=== PATIENT | male | born 1950 | race African-American/Black ===

== ENCOUNTER 2020-04-12 15:12 | Inpatient (IN) | payer MEDICARE, MEDICAID ==
[~2020-04-12] VITALS: Ht 170.2 cm; Wt 72.5 kg
[~2020-04-12 15:12] MED LIST: CATAPRES0.1 MG ORAL; METFORMIN HCL500 M1 ORAL
--- NOTE | 2020-04-12 15:30 | Emergency Room Report ---
History of Present Illness General Chief Complaint: Abnormal Labs Source: Patient, EMS Present Illness HPI Patient was started from assisted living for high blood sugar. The patient takes Metformin. He has a history of hypertension also. The patient is a poor historian as he has a history of schizophrenia. Apparently he denied any body pain to the ambulance crew. He does not answer many questions. It is undocumented how high the blood sugar was at the facility. History of hypertension, diabetes and schizophrenia. The patient allegedly had Covid in September. 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 Patient History Limited by: medical condition Past Medical History: see triage record Social History Narrative Assisted living Reviewed Nursing Documentation: PMH: Agreed; PSxH: Agreed Nursing Documentation-PMH Past Medical History: No History, Except For Hx Hypertension: Yes Hx Diabetes: Yes Review of Systems All Other Systems: limited Physical Exam Vital Signs Date Time Temp Pulse Resp B/P (MAP) Pulse Ox O2 Delivery O2 Flow Rate FiO2 04/12/20 15:14 97.9 78 18 120/58 (78) 96 Room Air Sp02 EP Interpretation: reviewed, normal General Appearance: well appearing, no apparent distress, alert, other - Not answering many questions Head: normocephalic, atraumatic Eyes: bilateral eye other - Not looking at examiner ENT: moist mucus membranes - Dentition Neck: supple Respiratory: lungs clear, normal breath sounds Cardiovascular #1: regular rate, rhythm Cardiovascular #2: 2+ radial (R) Gastrointestinal: normal inspection, normal bowel sounds, non tender, no mass, non-distended Genitourinary: no CVA tenderness Musculoskeletal: back normal, normal range of motion, gait/station normal Neurologic: alert, oriented - To name only, DTRs symmetric, sensory intact Psychiatric: mood/affect normal Skin: no rash, warm/dry Medical Decision Making Diagnostic Impression: Primary Impression: Hypernatremia Additional Impressions: Schizophrenia Qualified Codes: F20.89 - Other schizophrenia History of diabetes mellitus ER Course Patient presents with allegedly elevated blood glucose. Differential includes occult infection, acute myocardial infarction, medication noncompliance, electrolyte imbalance etc. so. Patient is difficult as he is not a good historian with history of schizophrenia. Evaluation with EKG, chest x-ray and labs. Patient treated with IV hydration and repeat blood glucose determinations. EKG without injury. Chest x-ray no infiltrates. Labs with minimally elevated white count without left shift. CMP remarkable for elevated sodium and normal glucose. Urinalysis with specific gravity 1.005. Urine sodium and urine osmolality ordered. Patient improved with IV hydration. Patient ambulatory and more conversant. Etiology of hypernatremia unclear. Patient extremely complicated with a history of schizophrenia. Patient admitted for observation and repeat sodium and glucose determinations. Laboratory Tests Test 04/12/20 15:30 04/12/20 16:01 White Blood Count 11.0 K/UL (4.8-10.8) H Red Blood Count 4.41 M/UL (4.70-6.10) L Hemoglobin 13.4 G/DL (14.2-18.0) L Hematocrit 40.9 % (42.0-52.0) L Mean Corpuscular Volume 93 FL (80-99) Mean Corpuscular Hemoglobin 30.5 PG (27.0-31.0) Mean Corpuscular Hemoglobin Concent 32.8 G/DL (32.0-36.0) Red Cell Distribution Width 13.1 % (11.6-14.8) Platelet Count 182 K/UL (150-450) Mean Platelet Volume 14.5 FL (6.5-10.1) H Neutrophils (%) (Auto) 64.5 % (45.0-75.0) Lymphocytes (%) (Auto) 22.8 % (20.0-45.0) Monocytes (%) (Auto) 8.5 % (1.0-10.0) Eosinophils (%) (Auto) 3.4 % (0.0-3.0) H Basophils (%) (Auto) 0.9 % (0.0-2.0) Sodium Level 151 MMOL/L (136-145) H Potassium Level 4.1 MMOL/L (3.5-5.1) Chloride Level 111 MMOL/L (98-107) H Carbon Dioxide Level 28 MMOL/L (21-32) Anion Gap 12 mmol/L (5-15) Blood Urea Nitrogen 14 mg/dL (7-18) Creatinine 0.8 MG/DL (0.55-1.30) Estimated Glomerular Filtration Rate > 60 mL/min (>60) Glucose Level 92 MG/DL (74-106) Lactic Acid Level 2.00 mmol/L (0.4-2.0) Calcium Level 8.6 MG/DL (8.5-10.1) Total Bilirubin 0.2 MG/DL (0.2-1.0) Aspartate Amino Transferase (AST) 15 U/L (15-37) Alanine Aminotransferase (ALT) 20 U/L (12-78) Alkaline Phosphatase 106 U/L (46-116) Total Creatine Kinase 65 U/L (26-308) Troponin I 0.000 ng/mL (0.000-0.056) Total Protein 7.2 G/DL (6.4-8.2) Albumin 3.1 G/DL (3.4-5.0) L Globulin 4.1 g/dL Albumin/Globulin Ratio 0.8 (1.0-2.7) L Thyroid Stimulating Hormone (TSH) 2.599 uiU/mL (0.358-3.740) Salicylates Level 1.3 ug/mL (2.8-20) L Serum Alcohol < 3 mg/dL Urine Color Pale yellow Urine Appearance Clear Urine pH 7 (4.5-8.0) Urine Specific [place] 1.005 (1.005-1.035) Urine Protein Negative (NEGATIVE) Urine Glucose (UA) Negative (NEGATIVE) Urine Ketones 1+ (NEGATIVE) H Urine Blood Negative (NEGATIVE) Urine Nitrite Negative (NEGATIVE) Urine Bilirubin Negative (NEGATIVE) Urine Urobilinogen Normal MG/DL (0.0-1.0) Urine Leukocyte Esterase Negative (NEGATIVE) Urine Osmolality 567 mOsm/kg (429-449) H Urine Random Sodium 125 mmol/L (20-110) H Urine Opiates Screen Negative (NEGATIVE) Urine Barbiturates Screen Negative (NEGATIVE) Phencyclidine (PCP) Screen Negative (NEGATIVE) Urine Amphetamines Screen Negative (NEGATIVE) Urine Benzodiazepines Screen Negative (NEGATIVE) Urine Cocaine Screen Negative (NEGATIVE) Urine Marijuana (THC) Screen Negative (NEGATIVE) Microbiology Date/Time Source Procedure Growth Status 04/12/20 21:00 Nasopharynx SARS-CoV-2 RdRp Gene Assay - Final Complete EKG Diagnostic Results Rate: normal Rhythm: NSR ST Segments: no acute changes Rhythm Strip Diag. Results EP Interpretation: yes Rhythm: NSR, no PVC's, no ectopy Chest X-Ray Diagnostic Results Chest X-Ray Diagnostic Results : Chest X-Ray Ordered: Yes # of Views/Limited/Complete: 1 View Indication: Other EP Interpretation: Yes Interpretation: no consolidation, no effusion, no pneumothorax Impression: No acute disease Electronically Signed by: Electronically signed by Edi Albert MD Last Vital Signs Date Time Temp Pulse Resp B/P (MAP) Pulse Ox O2 Delivery O2 Flow Rate FiO2 04/13/20 00:00 98.1 85 19 125/70 (88) 94 04/12/20 23:11 Room Air Status: improved Disposition: PLACE IN OBSERVATION Condition: Serious Edi Albert MD Apr 12, 2020 15:30
[2020-04-12 15:40] VITALS: BP 119/57
[2020-04-12 16:12] LABS: BASOPHILS % (AUTO) 0.9 % (0.0-2.0); EOSINOPHILS % (AUTO) 3.4 % (0.0-3.0); HEMATOCRIT 40.9 % (42.0-52.0); HEMOGLOBIN 13.4 G/DL (14.2-18.0); LYMPHOCYTES % (AUTO) 22.8 % (20.0-45.0); MEAN CORPUSCULAR VOLUME 93 FL (80-99); MONOCYTES % (AUTO) 8.5 % (1.0-10.0); NEUTROPHILS % (AUTO) 64.5 % (45.0-75.0); PLATELET COUNT 182 K/UL (150-450); RED BLOOD COUNT 4.41 M/UL (4.70-6.10); RED CELL DISTRIBUTION WIDTH 13.1 % (11.6-14.8)
[2020-04-12 16:25] LABS: ANION GAP 12 mmol/L (5-15); BLOOD UREA NITROGEN 14 mg/dL (7-18); CALCIUM 8.6 MG/DL (8.5-10.1); CARBON DIOXIDE 28 MMOL/L (21-32); CHLORIDE 111 MMOL/L (98-107); CREATININE 0.8 MG/DL (0.55-1.30); POTASSIUM 4.1 MMOL/L (3.5-5.1); SODIUM 151 MMOL/L (136-145)
[2020-04-12 16:37] LABS: ALANINE AMINOTRANSFERASE 20 U/L (12-78); ALBUMIN 3.1 G/DL (3.4-5.0); ALBUMIN/GLOBULIN RATIO 0.8 (1.0-2.7); ALKALINE PHOSPHATASE 106 U/L (46-116); ASPARTATE AMINO TRANSFERASE 15 U/L (15-37); BILIRUBIN,TOTAL 0.2 MG/DL (0.2-1.0); CREATINE KINASE 65 U/L (26-308)
--- NOTE | 2020-04-12 16:44 | Diagnostic Imaging Report ---
Indication: Shortness of breath Technique: One view of the chest Comparison: 03/03/2016 Findings: Lungs and pleural spaces are clear. Heart size is normal. No significant change Impression: No acute process
[2020-04-12 16:52] LABS: APPEARANCE,URINE CLEAR; BILIRUBIN, URINE NEGATIVE (NEGATIVE); COLOR,URINE PALE YELLOW; GLUCOSE, URINE (UA) NEGATIVE (NEGATIVE); KETONES,URINE 1+ (NEGATIVE); LEUKOCYTE ESTERASE ,URINE NEGATIVE (NEGATIVE); NITRITE,URINE NEGATIVE (NEGATIVE); PH,URINE 7 (4.5-8.0); PROTEIN,URINE NEGATIVE (NEGATIVE); UROBILINOGEN,URINE NORMAL MG/DL (0.0-1.0)
[2020-04-12 17:33] VITALS: BP 121/56
[2020-04-12] MEDS ORDERED: mylanta PO (22:33)
[2020-04-12] MEDS ORDERED: NATEGLINIDE120 MG PO (22:33)
[2020-04-12] MEDS ORDERED: CLOZAPINE200 MG PO (22:33)
[2020-04-12] MEDS ORDERED: MOM30 ML ORAL (22:33)
[2020-04-12] MEDS ORDERED: AMLODIPINE BESYL5 MG ORAL (22:33)
[2020-04-12] MEDS ORDERED: TRADJENTA5 MG PO (22:33)
[2020-04-12] MEDS ORDERED: BISACODYL10 M1 RC (22:33)
[2020-04-12] MEDS ORDERED: METFORMIN500 MG/5 M PO (22:33)
[2020-04-12] MEDS ORDERED: ACTOS15 MG ORAL (22:33)
[2020-04-12] MEDS ORDERED: LEVEMIR FL100 UNIT/2 SQ (22:33)
[2020-04-12] MEDS ORDERED: DEPAKOTE250 MG PO (22:33)
[2020-04-12] MEDS ORDERED: ACETAMINOPHEN325 M1 ORAL ×2 (22:33)
[2020-04-12] MEDS ORDERED: VITAMIN C500 M1 ORAL (22:33)
[2020-04-12] MEDS ORDERED: THIAMINE H100 MG/1 M IJ (22:33)
[2020-04-12] MEDS ORDERED: ASPIRIN81 MG ORAL (22:33)
[2020-04-12] MEDS ORDERED: METFORMIN HCL850 M1 ORAL (22:38)
[2020-04-12] MEDS: D5NS 1,000 ML IV SCH ×3 (22:45→23:48)
[2020-04-13] VITALS (7 sets, daily range): BP systolic 114–132; BP diastolic 68–81
[2020-04-13] MEDS: D5NS 1,000 ML IV SCH ×2 (01:26→18:29)
[2020-04-13] MEDS: NovoLOG Insulin Flexpen SUBQ SCH ×4 (06:02→20:22)
[2020-04-13] MEDS ORDERED: NovoLOG Insulin Flexpen SUBQ SCH (06:30)
[2020-04-13 07:55] LABS: BASOPHILS % (AUTO) 2.6 % (0.0-2.0); EOSINOPHILS % (AUTO) 3.3 % (0.0-3.0); HEMATOCRIT 39.3 % (42.0-52.0); HEMOGLOBIN 13.6 G/DL (14.2-18.0); MEAN CORPUSCULAR VOLUME 87 FL (80-99); MONOCYTES % (AUTO) 7.9 % (1.0-10.0); NEUTROPHILS % (AUTO) 65.2 % (45.0-75.0); PLATELET COUNT 188 K/UL (150-450); RED BLOOD COUNT 4.54 M/UL (4.70-6.10); RED CELL DISTRIBUTION WIDTH 12.4 % (11.6-14.8)
[2020-04-13 08:07] LABS: ANION GAP 10 mmol/L (5-15); BLOOD UREA NITROGEN 9 mg/dL (7-18); CALCIUM 8.6 MG/DL (8.5-10.1); CARBON DIOXIDE 25 MMOL/L (21-32); CHLORIDE 104 MMOL/L (98-107); CREATININE 0.8 MG/DL (0.55-1.30); SODIUM 139 MMOL/L (136-145)
[2020-04-13] MEDS: Aspirin Baby 81mg ORAL SCH (08:56)
[2020-04-13] MEDS: Docusate 100mg cap ORAL SCH ×2 (08:57→18:26)
[2020-04-13] MEDS: Ascorbic Acid 500mg tab ORAL SCH (08:59)
[2020-04-13] MEDS: Thiamine 100mg tab ORAL SCH (08:59)
[2020-04-13] MEDS ORDERED: Heparin 1000 units/ml 1ml Vial INJ SCH (09:00)
--- NOTE | 2020-04-13 12:00 | History and Physical Report ---
DATE OF ADMISSION: 04/12/2020 DATE AND TIME SEEN: 04/13/2020 at 9 a.m. CONSULTANTS: 1. Toan Carey MD. 2. Izaiah Castro MD. 3. Matilde Rodriguez MD. CHIEF COMPLAINT: Hypernatremia and hyperglycemia. BRIEF HISTORY: This is a 69-year-old male from [facility], presented with above-mentioned diagnoses, admitted to medical floor. Currently, slightly confused in bed. No complaint otherwise. REVIEW OF SYSTEMS: No chest pain. No shortness of breath. Slight nausea. No vomiting. No diarrhea. PAST MEDICAL HISTORY: Includes diabetes, COPD, hypertension, weakness, anemia, paranoid schizophrenia. PAST SURGICAL HISTORY: Unknown. ALLERGIES: Denies. MEDICATIONS: Include clozapine, magnesium, insulin, divalproex, heparin, , metformin, aspirin. SOCIAL HISTORY: Positive smoking. No alcohol. No intravenous drug abuse. FAMILY HISTORY: Noncontributory. PHYSICAL EXAMINATION: GENERAL: Slightly anxious in bed, oriented x1, in no acute distress. VITAL SIGNS: Temperature 97, pulse , respirations 18, blood pressure 125/75. CARDIOVASCULAR: No murmur. LUNGS: Distant and clear. ABDOMEN: Bowel sounds positive. Nontender. Nondistended. EXTREMITIES: No clubbing, cyanosis or edema. NEUROLOGIC: The patient moves all extremities, slightly weak. LABORATORY AND DIAGNOSTIC DATA: Labs at this time show hemoglobin and hematocrit 13/39, otherwise CBC is normal. BMP shows initial sodium of 151, now is normalized. Glucose 157. Lactic acid 6.7. Albumin 3.1. Urinalysis, 1+ ketone. Urine tox is negative. ASSESSMENT: 1. Hypernatremia, which is improved. 2. Hyperglycemia, improved. 3. Hypertension. 4. Diabetes. 5. COPD. 6. Weakness. 7. Anemia. 8. Paranoid schizophrenia. PLAN: IV fluid. Blood pressure, blood sugar, pain control. Resume home medications. Psych treatment. Dietary followup. PT and dietary evaluation. CBC and BMP in the morning. Psychiatric evaluation. Possible transfer. James Lakhani D.O. DR: DEMETRICE JOB#: [id number] CC:
--- NOTE | 2020-04-13 12:32 | Consultation ---
Consult Note Consult Note I am asked to evaluate the patient at the request of Dr. Lakhani for fluid and electrolyte management Patient was started from assisted living for high blood sugar. The patient takes Metformin. He has a history of hypertension also. The patient is a poor historian as he has a history of schizophrenia. Apparently he denied any body pain to the ambulance crew. He does not answer many questions. It is undocumented how high the blood sugar was at the facility. History of hypertension, diabetes and schizophrenia. The patient allegedly had Covid in September. 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 VITAL SIGNS: Temperature 97, pulse 78 , respirations 18, blood pressure 125/75. CARDIOVASCULAR: No murmur. LUNGS: Distant and clear. ABDOMEN: Bowel sounds positive. Nontender. Nondistended. EXTREMITIES: No clubbing, cyanosis or edema. NEUROLOGIC: The patient moves all extremities, slightly weak. LABORATORY AND DIAGNOSTIC DATA: Labs at this time show hemoglobin and hematocrit 13/39, otherwise CBC is normal. BMP shows initial sodium of 151, now is normalized. Glucose 157. Lactic acid 6.7. Albumin 3.1. Urinalysis, 1+ ketone. Urine tox is negative. . Assessment/Plan Hypernatremia now improved Hyperglycemia stable History of hypertension History of diabetes mellitus COPD Paranoid schizophrenia Mild anemia Continue per current management Continue to monitor electrolytes and renal parameters Psych Toan Oliver MD Apr 13, 2020 12:32
--- NOTE | 2020-04-13 15:45 | Consultation ---
DATE OF CONSULTATION: 04/13/2020 ENDOCRINOLOGY CONSULTATION CONSULTING PHYSICIAN: Izaiah Castro MD. REFERRING PHYSICIAN: James Lakhani DO. REASON FOR CONSULTATION: Management of diabetes. HISTORY OF PRESENT ILLNESS: The patient is a 69-year-old male, who is known to me. I followed him as an outpatient for the management of diabetes. He resides in [facility]. Diabetes regimen as an outpatient is Levemir 30 units at bedtime, Actos 15 mg daily, metformin 850 mg b.i.d., Starlix 120 mg before each meal, Tradjenta 5 mg daily as well as NovoLog sliding scale. He presented to the hospital with hypernatremia and hyperglycemia. Endocrinology was consulted. His hemoglobin A1c is 6.7 and a creatinine of 0.8. PAST MEDICAL HISTORY: 1. Heartburn. 2. Diabetes. 3. Dyslipidemia. 4. Psychiatric illness. PAST SURGICAL HISTORY: None. ALLERGIES TO MEDICATIONS: None. FAMILY HISTORY: Noncontributory. SOCIAL HISTORY: Lives in a jail facility. No smoking, alcohol, or drug use. REVIEW OF SYSTEMS: A 12-point review of systems was performed, pertinent positives and negatives mentioned in the present illness. LABORATORY DATA: Sodium 151, potassium 4.1, chloride 111, bicarb 28, BUN 14, creatinine 0.8, glucose of 92. TSH 2.5. PHYSICAL EXAMINATION: GENERAL: He is awake. VITAL SIGNS: Blood pressure 132/76, heart rate 79, temperature 98.2, respiratory rate of 18. HEENT: Pupils are reactive to light. Sclerae are anicteric. NECK: No JVD. HEART: Regular. LUNGS: Clear. ABDOMEN: Positive bowel sounds. Soft. EXTREMITIES: No clubbing, cyanosis, or edema. DIAGNOSES: 1. Diabetes, out of control. 2. Hypernatremia. PLAN: 1. Increase metformin to 850 mg b.i.d. 2. Continue Levemir 30 units at bedtime. 3. Starlix 120 mg before each meal. 4. Continue pioglitazone 15 mg daily. 5. NovoLog sliding scale before meals and at bedtime. 6. Further adjustment according to the blood glucose values. Thank you Dr. Lakhani, for the courtesy of this consultation. Izaiah Castro M.D. DR: ALEKSANDR JOB#: [id number] CC: TANNER
--- NOTE | 2020-04-13 19:59 | Cardiology Report ---
APPROVED REPORT EKG Measurement Heart [id number] <Conclusion> Normal sinus rhythm Normal ECG
[2020-04-13] MEDS: Levemir Flexpen SUBQ SCH (20:22)
[2020-04-13] MEDS: Milk of Magnesia 30ml Ud ORAL SCH (20:23)
[2020-04-13] MEDS: Heparin 5000 units/ml inj SUBQ SCH (20:23)
[2020-04-13] MEDS ORDERED: Levemir Flexpen SUBQ SCH (21:00)
--- NOTE | 2020-04-13 21:30 | Consultation ---
DATE OF CONSULTATION: 04/13/2020 INITIAL PSYCHIATRIC CONSULTATION REFERRING PHYSICIAN: James Lakhani D.O. HISTORY OF PRESENT ILLNESS: The patient got a consultation because he has a diagnosis of schizoaffective, bipolar type. He has been having some behavioral problems and irritability, agitation, mood lability. That is why, his attending has requested daily psychiatric consultation. I saw this patient at bedside. He states having auditory hallucinations and paranoid thoughts. He cannot contract for safety at this point. That is why, he does require acute psychiatric inpatient treatment, and so there was an assessment made for that today. He says "I feel very depressed and I am hearing voices. I need my medication adjusted on the psych unit." That was his chief complaint. MEDICAL HISTORY: This patient has a medical history significant for hypernatremia, diabetes. ALLERGIES: No known drug allergies. PSYCHOTROPIC MEDICATIONS ON ADMISSION: Depakote 250 mg daily, Clozaril 400 mg at bedtime. FAMILY PSYCHIATRIC HISTORY: Denies. PAIN ASSESSMENT: 09/04 pain. DEVELOPMENTAL PROBLEMS: Denies. SUBSTANCE ABUSE HISTORY: Denies. SOCIAL HISTORY: The patient lives in [facility]. Financially supported by [employer] and Medicare. STRENGTHS: He is motivated to get better and he is healthy. WEAKNESSES: Impulsive, minimal support system. MENTAL STATUS EXAMINATION: A 69-year-old male. His appearance is disheveled. Attitude irritable and agitated. Affect labile. Intellect poor because he does know current events, does not know last four presidents. Mood depressed and anxious. Motor activity, psychomotor agitation. Attention span is poor because he cannot do serial sevens or spell world backwards. Orientation x2, oriented to person, place, not time or situation. Speech is pressured, nonsensical. Thought process disorganized and illogical. Thought content, auditory hallucinations, paranoid delusions. Perception is poor because of perceptual disturbance such as auditory hallucinations and paranoid delusions. Abstract reasoning is poor because he does not understand proverbs and only has concrete thinking. Insight is poor because he does not recognize having a psych disorder. Judgment is poor. He does not accept consequences for his actions. Short-term memory, 3 out of 3 recall after 5 minutes delay with good short-term memory. Long-term memory is intact based on his knowledge of long-term events of his life such as high school that he went to. DIAGNOSES: 1. Schizoaffective, bipolar type. 2. There is no secondary. 3. Medical is COPD, hypertension, generalized weakness, diabetes. 4. Psychosocial stressors, financial. 5. Functional impairment severe. PLAN: Transfer to [facility] Psych Unit under the care of Dr. James Lakhani, the internal medicine physician, and Dr. Matilde Rodriguez, the psychiatrist, and provide him with 20 minutes of cognitive behavioral therapy to help him identify his automatic negative thoughts, help him convert his negative thoughts to more positive thoughts to reduce depression, anxiety, and mood lability. Chart reviewed. Discussed with staff. The patient was seen and assessed at bedside. Matilde Rodriguez M.D. DR: MICHAELLE/Obi JOB#: [id number] CC:
[2020-04-14 03:49] VITALS: BP 117/61
[2020-04-14] MEDS: NovoLOG Insulin Flexpen SUBQ SCH ×4 (06:29→20:31)
[2020-04-14 08:00] VITALS: BP 118/71
[2020-04-14] MEDS: Thiamine 100mg tab ORAL SCH (08:32)
[2020-04-14] MEDS: Ascorbic Acid 500mg tab ORAL SCH (08:32)
[2020-04-14] MEDS: Aspirin Baby 81mg ORAL SCH (08:32)
[2020-04-14] MEDS: Docusate 100mg cap ORAL SCH ×2 (08:32→16:58)
[2020-04-14] MEDS: D5NS 1,000 ML IV SCH (08:32)
[2020-04-14] MEDS: Heparin 5000 units/ml inj SUBQ SCH ×2 (08:36→20:36)
--- NOTE | 2020-04-14 08:53 | Initial Psychiatric Evaluation ---
Psychiatry Consultation Psychiatry Consultation Chief Complaint: Abnormal Labs History of Present Illness: 69 yo male who is confused ans disorganized. His cognition has declined bloe his baseling and he has auditory hallucinations and confusions with no plan for self care. Needs admit to psych Allergies: Coded Allergies: No Known Allergies (Unverified , 03/03/16) Medication History Scheduled Amlodipine Besylate* (Amlodipine Besylate*), 5 MG ORAL DAILY, (Reported) Ascorbic Acid* (Vitamin C*), 500 MG ORAL DAILY, (Reported) Aspirin* (Aspirin*), 81 MG ORAL DAILY, (Reported) Clonidine Hcl* (Catapres*), 0.1 MG ORAL Q8H, (Reported) Clozapine (Clozapine), 400 MG PO BEDTIME, (Reported) Divalproex Sodium* (Depakote*), 250 MG PO BEDTIME, (Reported) Insulin Detemir (Levemir Flextouch), 30 UNIT SQ QHS, (Reported) Magnesium Hydroxide (Milk of Magnesia), 30 ML ORAL QHS, (Reported) Metformin Hcl* (Metformin Hcl*), 850 MG ORAL DAILY, (Reported) Nateglinide (Nateglinide), 120 MG PO THREE TIMES A DAY, (Reported) Thiamine Hcl (Thiamine Hcl), 100 MG IJ DAILY, (Reported) [mylanta], 5 ML PO Q4HR, (Reported) Scheduled PRN Acetaminophen* (Acetaminophen 325MG Tablet*), 650 MG ORAL Q4H PRN for Temp >100.5, (Reported) Acetaminophen* (Acetaminophen 325MG Tablet*), 650 MG ORAL Q6H PRN for For Pain, (Reported) Linagliptin (Tradjenta), 5 MG PO DAILY PRN for Hyperglycemia, (Reported) Pioglitazone Hcl* (Actos*), 15 MG ORAL DAILY PRN for Hyperglycemia, (Reported) Miscellaneous Medications Bisacodyl (Bisacodyl), 10 MG RC, (Reported) Objective Data Height (Feet): 5 Height (Inches): 7.00 Weight (Pounds): 158 Appearance: disheveled Behavior Mannerisms: poor eye contact Affect: constricted Mood: irritable Speech: dysarthric Thought Process: disorganized Perceptual Disturbances: auditory Suicidal Ideation: no plan Assessment/Plan Assessment/Plan: 20 min of CBT therapy to help her identify her automatic thoughts of negative things and help convet them to positive thinking to reduce depression and SI. Continue Clozaril 400mg PO qhs and Depakote 500mg PO BID. Diagnosis [place] I: Schizoaffective Bipolar type Matilde Rodriguez MD Apr 14, 2020 08:53
[2020-04-14 10:28] LABS: HEMATOCRIT 39.3 % (42.0-52.0); HEMOGLOBIN 13.5 G/DL (14.2-18.0); LYMPHOCYTES % (AUTO) 23.7 % (20.0-45.0); MEAN CORPUSCULAR VOLUME 87 FL (80-99); MONOCYTES % (AUTO) 9.1 % (1.0-10.0); NEUTROPHILS % (AUTO) 63.2 % (45.0-75.0); PLATELET COUNT 180 K/UL (150-450); RED BLOOD COUNT 4.53 M/UL (4.70-6.10); RED CELL DISTRIBUTION WIDTH 12.7 % (11.6-14.8); WHITE BLOOD COUNT 8.3 K/UL (4.8-10.8)
--- NOTE | 2020-04-14 10:46 | General Progress Note ---
Subjective Constitutional: Reports: weakness Allergies: Coded Allergies: No Known Allergies (Unverified , 03/03/16) All Systems: reviewed and negative except above Subjective calm in bed Objective Last 24 Hour Vital Signs Date Time Temp Pulse Resp B/P (MAP) Pulse Ox O2 Delivery O2 Flow Rate FiO2 04/14/20 09:00 Room Air 04/14/20 08:33 81 118/71 04/14/20 08:00 98.6 81 18 118/71 (87) 97 04/14/20 03:49 96.4 79 18 117/61 (79) 99 04/13/20 23:45 97.7 82 20 114/68 (83) 93 04/13/20 21:00 Room Air 04/13/20 20:00 98.2 88 20 120/73 (89) 96 04/13/20 16:00 98.4 74 19 125/75 (92) 97 04/13/20 12:00 98.2 79 18 132/76 (94) 97 Intake and Output 04/13/20 04/14/20 19:00 07:00 Intake Total 1800 ml 1080 ml Output Total 4275 ml Balance -2475 ml 1080 ml Intake Oral 1800 ml IV Total 720 ml Other 360 ml Output Urine Total 4275 ml # Voids 7 # Bowel Movements 1 Laboratory Tests 04/14/20 10:11: Sodium Level [Pending], Potassium Level [Pending], Chloride Level [Pending], Carbon Dioxide Level [Pending], Blood Urea Nitrogen [Pending], Creatinine [Pending], Estimat Glomerular Filtration Rate [Pending], Glucose Level [Pen ding], Calcium Level [Pending] 04/14/20 10:15: White Blood Count 8.3, Red Blood Count 4.53L, Hemoglobin 13.5L, Hematocrit 39.3L , Mean Corpuscular Volume 87, Mean Corpuscular Hemoglobin 29.8, Mean Corpuscular Hemoglobin Concent 34.3, Red Cell Distribution Width 12.7, Platelet Count 180, Mean Platelet Volume 10.8H, Neutrophils (%) (Auto) 63.2, Lymphocytes (%) (Auto) 23.7, Monocytes (%) (Auto) 9.1, Eosinophils (%) (Auto) 3.0, Basophils (%) (Auto) 1.0 Height (Feet): 5 Height (Inches): 7.00 Weight (Pounds): 158 General Appearance: lethargic, confused EENT: normal ENT inspection Neck: normal alignment Cardiovascular: normal peripheral pulses, normal rate, regular rhythm Respiratory/Chest: chest wall non-tender, lungs clear, normal breath sounds Abdomen: normal bowel sounds, non tender, soft Extremities: normal inspection Edema: no edema noted Arm (L), no edema noted Arm (R), no edema noted Leg (L), no edema noted Leg (R), no edema noted Pedal (L), no edema noted Pedal (R), no edema noted Generalized Neurologic: motor weakness Skin: normal pigmentation, warm/dry Assessment/Plan Problem List: (1) Vomiting ICD Codes: R11.10 - Vomiting, unspecified SNOMED: 194688585 (2) Schizophrenia ICD Codes: F20.9 - Schizophrenia, unspecified SNOMED: [id number] Qualifiers: Qualified Codes: F20.89 - Other schizophrenia (3) History of diabetes mellitus ICD Codes: Z86.39 - Personal history of other endocrine, nutritional and metabolic disease SNOMED: 817304444 (4) Hypernatremia ICD Codes: E87.0 - Hyperosmolality and hypernatremia SNOMED: 524619350 Status: unchanged Assessment/Plan: bp bs control neph endo f/u cbc bmp am psyc transfer James Lakhani DO Apr 14, 2020 10:46
[2020-04-14 10:58] LABS: ANION GAP 5 mmol/L (5-15); BLOOD UREA NITROGEN 6 mg/dL (7-18); CALCIUM 8.4 MG/DL (8.5-10.1); CARBON DIOXIDE 29 MMOL/L (21-32); CHLORIDE 107 MMOL/L (98-107); CREATININE 0.7 MG/DL (0.55-1.30); POTASSIUM 3.8 MMOL/L (3.5-5.1); SODIUM 141 MMOL/L (136-145)
[2020-04-14 12:00] VITALS: BP 128/73
--- NOTE | 2020-04-14 12:28 | General Progress Note ---
Subjective Allergies: Coded Allergies: No Known Allergies (Unverified , 03/03/16) All Systems: reviewed and negative except above Subjective events noted interval notes reviewed glucose values improved Item Value Date Time Bedside Blood Glucose 160 mg/dl H 04/14/20 1217 Bedside Blood Glucose 162 mg/dl H 04/14/20 0629 Bedside Blood Glucose 226 mg/dl H 04/13/20 2030 Bedside Blood Glucose 124 mg/dl H 04/13/20 1645 Bedside Blood Glucose 206 mg/dl H 04/13/20 1202 Objective Last 24 Hour Vital Signs Date Time Temp Pulse Resp B/P (MAP) Pulse Ox O2 Delivery O2 Flow Rate FiO2 04/14/20 09:00 Room Air 04/14/20 08:33 81 118/71 04/14/20 08:00 98.6 81 18 118/71 (87) 97 04/14/20 03:49 96.4 79 18 117/61 (79) 99 04/13/20 23:45 97.7 82 20 114/68 (83) 93 04/13/20 21:00 Room Air 04/13/20 20:00 98.2 88 20 120/73 (89) 96 04/13/20 16:00 98.4 74 19 125/75 (92) 97 Intake and Output 04/13/20 04/14/20 19:00 07:00 Intake Total 1800 ml 1080 ml Output Total 4275 ml Balance -2475 ml 1080 ml Intake Oral 1800 ml IV Total 720 ml Other 360 ml Output Urine Total 4275 ml # Voids 7 # Bowel Movements 1 Laboratory Tests 04/14/20 10:11: Sodium Level 141, Potassium Level 3.8, Chloride Level 107, Carbon Dioxide Level 29, Anion Gap 5, Blood Urea Nitrogen 6L, Creatinine 0.7, Estimat Glomerular Filtration Rate > 60, Glucose Level 108H, Calcium Level 8.4L 04/14/20 10:15: White Blood Count 8.3, Red Blood Count 4.53L, Hemoglobin 13.5L, Hematocrit 39.3L , Mean Corpuscular Volume 87, Mean Corpuscular Hemoglobin 29.8, Mean Corpuscular Hemoglobin Concent 34.3, Red Cell Distribution Width 12.7, Platelet Count 180, Mean Platelet Volume 10.8H, Neutrophils (%) (Auto) 63.2, Lymphocytes (%) (Auto) 23.7, Monocytes (%) (Auto) 9.1, Eosinophils (%) (Auto) 3.0, Basophils (%) (Auto) 1.0 04/14/20 11:25: POC Whole Blood Glucose 160H Height (Feet): 5 Height (Inches): 7.00 Weight (Pounds): 158 General Appearance: no apparent distress Neck: normal alignment Cardiovascular: regular rhythm Respiratory/Chest: lungs clear Abdomen: normal bowel sounds Pelvis: normal external exam Objective Current Medications Medications (Trade) Dose Ordered Sig/Nimisha Route PRN Reason Start Time Stop Time Status Last Admin Dose Admin Acetaminophen (Tylenol) 650 mg Q4H PRN ORAL Temp >100.5 04/12/20 22:45 05/12/20 22:44 Acetaminophen (Tylenol) 650 mg Q6H PRN ORAL For Pain 04/12/20 22:45 05/12/20 22:44 Al Hydroxide/Mg Hydroxide (Mylanta) 5 ml QIDPRN ORAL 04/12/20 22:45 05/12/20 22:44 Amlodipine Besylate (Norvasc) 5 mg DAILY ORAL 04/13/20 09:00 05/13/20 08:59 04/14/20 08:33 Ascorbic Acid (Vitamin C) 500 mg DAILY ORAL 04/13/20 09:00 05/13/20 08:59 04/14/20 08:32 Aspirin (ASA) 81 mg DAILY ORAL 04/13/20 09:00 05/28/20 08:59 04/14/20 08:32 Bisacodyl (Dulcolax) 10 mg DAILYPRN PRN RECTAL Constipation 04/13/20 12:30 07/12/20 12:29 Clozapine (Clozaril) 400 mg BEDTIME ORAL 04/13/20 21:00 04/20/20 20:59 04/13/20 20:20 Dextrose (Dextrose 50%) 25 ml Q30M PRN IV Hypoglycemia 04/12/20 22:45 07/11/20 22:44 Dextrose (Dextrose 50%) 50 ml Q30M PRN IV Hypoglycemia 04/12/20 22:45 07/11/20 22:44 Dextrose/Sodium Chloride 1,000 ml @ 60 mls/hr [id number] IV 04/13/20 01:30 05/13/20 01:29 04/14/20 08:32 Divalproex Sodium (Depakote) 250 mg BEDTIME ORAL 04/13/20 21:00 05/13/20 20:59 04/13/20 20:21 Docusate Sodium (Colace) 100 mg TWICE A DAY ORAL 04/13/20 09:00 05/13/20 08:59 04/14/20 08:32 Heparin Sodium (Porcine) (Heparin 5000 units/ml) 5,000 units EVERY 12 HOURS SUBQ 04/13/20 21:00 05/28/20 20:59 04/14/20 08:36 Insulin Aspart (NovoLOG) BEFORE MEALS AND HS SUBQ 04/13/20 06:30 07/12/20 06:29 04/14/20 12:17 Insulin Detemir (Levemir) 30 units QHS SUBQ 04/13/20 21:00 07/12/20 20:59 04/13/20 20:22 Magnesium Hydroxide (Mom) 30 ml QHS ORAL 04/13/20 21:00 05/13/20 20:59 Metformin HCl (Glucophage) 850 mg BID ORAL 04/13/20 18:00 05/13/20 08:59 04/14/20 08:32 Nateglinide (Starlix) 120 mg THREE TIMES A DAY ORAL 04/13/20 09:00 05/13/20 08:59 04/14/20 12:17 Pioglitazone HCl (Actos) 15 mg DAILY ORAL 04/13/20 14:16 05/13/20 14:15 04/14/20 08:32 Thiamine HCl (Vitamin B1) 100 mg DAILY ORAL 04/13/20 09:00 05/13/20 08:59 04/14/20 08:32 Assessment/Plan Problem List: (1) Schizophrenia ICD Codes: F20.9 - Schizophrenia, unspecified SNOMED: 82119716 Qualifiers: Qualified Codes: F20.89 - Other schizophrenia (2) History of diabetes mellitus ICD Codes: Z86.39 - Personal history of other endocrine, nutritional and metabolic disease SNOMED: 898665339 (3) Hypernatremia ICD Codes: E87.0 - Hyperosmolality and hypernatremia SNOMED: 259624228 (4) Vomiting ICD Codes: R11.10 - Vomiting, unspecified SNOMED: 365302984 Status: unchanged Assessment/Plan: continue Levemir 30 units qhs continue Metformin 850 mg bid continue Actos 15 mg daily continue Starlix 120 mg ac tid continue Novolog sliding scale ac / hs Izaiah Castro MD Apr 14, 2020 12:28
--- NOTE | 2020-04-14 13:10 | Nephrology Progress Note ---
Assessment/Plan Problem List: (1) Hypernatremia (2) Vomiting (3) History of diabetes mellitus (4) Schizophrenia Assessment Hypernatremia now improved Hyperglycemia stable History of hypertension History of diabetes mellitus COPD Paranoid schizophrenia Mild anemia Plan Continue per current management Continue to monitor electrolytes and renal parameters Psych eval Subjective ROS Limited/Unobtainable: No Constitutional: Reports: malaise Objective Objective Last 24 Hour Vital Signs Date Time Temp Pulse Resp B/P (MAP) Pulse Ox O2 Delivery O2 Flow Rate FiO2 04/14/20 12:00 97.5 74 18 128/73 (91) 93 04/14/20 09:00 Room Air 04/14/20 08:33 81 118/71 04/14/20 08:00 98.6 81 18 118/71 (87) 97 04/14/20 03:49 96.4 79 18 117/61 (79) 99 04/13/20 23:45 97.7 82 20 114/68 (83) 93 04/13/20 21:00 Room Air 04/13/20 20:00 98.2 88 20 120/73 (89) 96 04/13/20 16:00 98.4 74 19 125/75 (92) 97 Intake and Output 04/13/20 04/14/20 19:00 07:00 Intake Total 1800 ml 1080 ml Output Total 4275 ml Balance -2475 ml 1080 ml Intake Oral 1800 ml IV Total 720 ml Other 360 ml Output Urine Total 4275 ml # Voids 7 # Bowel Movements 1 Current Medications Medications (Trade) Dose Ordered Sig/Nimisha Route PRN Reason Start Time Stop Time Status Last Admin Dose Admin Acetaminophen (Tylenol) 650 mg Q4H PRN ORAL Temp >100.5 04/12/20 22:45 05/12/20 22:44 Acetaminophen (Tylenol) 650 mg Q6H PRN ORAL For Pain 04/12/20 22:45 05/12/20 22:44 Al Hydroxide/Mg Hydroxide (Mylanta) 5 ml QIDPRN ORAL 04/12/20 22:45 05/12/20 22:44 Amlodipine Besylate (Norvasc) 5 mg DAILY ORAL 04/13/20 09:00 05/13/20 08:59 04/14/20 08:33 Ascorbic Acid (Vitamin C) 500 mg DAILY ORAL 04/13/20 09:00 05/13/20 08:59 04/14/20 08:32 Aspirin (ASA) 81 mg DAILY ORAL 04/13/20 09:00 05/28/20 08:59 04/14/20 08:32 Bisacodyl (Dulcolax) 10 mg DAILYPRN PRN RECTAL Constipation 04/13/20 12:30 07/12/20 12:29 Clozapine (Clozaril) 400 mg BEDTIME ORAL 04/13/20 21:00 04/20/20 20:59 04/13/20 20:20 Dextrose (Dextrose 50%) 25 ml Q30M PRN IV Hypoglycemia 04/12/20 22:45 07/11/20 22:44 Dextrose (Dextrose 50%) 50 ml Q30M PRN IV Hypoglycemia 04/12/20 22:45 07/11/20 22:44 Dextrose/Sodium Chloride 1,000 ml @ 60 mls/hr [id number] IV 04/13/20 01:30 05/13/20 01:29 04/14/20 08:32 Divalproex Sodium (Depakote) 250 mg BEDTIME ORAL 04/13/20 21:00 05/13/20 20:59 04/13/20 20:21 Docusate Sodium (Colace) 100 mg TWICE A DAY ORAL 04/13/20 09:00 05/13/20 08:59 04/14/20 08:32 Heparin Sodium (Porcine) (Heparin 5000 units/ml) 5,000 units EVERY 12 HOURS SUBQ 04/13/20 21:00 05/28/20 20:59 04/14/20 08:36 Insulin Aspart (NovoLOG) BEFORE MEALS AND HS SUBQ 04/13/20 06:30 07/12/20 06:29 04/14/20 12:17 Insulin Detemir (Levemir) 30 units QHS SUBQ 04/13/20 21:00 07/12/20 20:59 04/13/20 20:22 Magnesium Hydroxide (Mom) 30 ml QHS ORAL 04/13/20 21:00 05/13/20 20:59 Metformin HCl (Glucophage) 850 mg BID ORAL 04/13/20 18:00 05/13/20 08:59 04/14/20 08:32 Nateglinide (Starlix) 120 mg THREE TIMES A DAY ORAL 04/13/20 09:00 05/13/20 08:59 04/14/20 12:17 Pioglitazone HCl (Actos) 15 mg DAILY ORAL 04/13/20 14:16 05/13/20 14:15 04/14/20 08:32 Thiamine HCl (Vitamin B1) 100 mg DAILY ORAL 04/13/20 09:00 05/13/20 08:59 04/14/20 08:32 Laboratory Tests 04/14/20 10:11: Sodium Level 141, Potassium Level 3.8, Chloride Level 107, Carbon Dioxide Level 29, Anion Gap 5, Blood Urea Nitrogen 6L, Creatinine 0.7, Estimat Glomerular Filtration Rate > 60, Glucose Level 108H, Calcium Level 8.4L 04/14/20 10:15: White Blood Count 8.3, Red Blood Count 4.53L, Hemoglobin 13.5L, Hematocrit 39.3L , Mean Corpuscular Volume 87, Mean Corpuscular Hemoglobin 29.8, Mean Corpuscular Hemoglobin Concent 34.3, Red Cell Distribution Width 12.7, Platelet Count 180, Mean Platelet Volume 10.8H, Neutrophils (%) (Auto) 63.2, Lymphocytes (%) (Auto) 23.7, Monocytes (%) (Auto) 9.1, Eosinophils (%) (Auto) 3.0, Basophils (%) (Auto) 1.0 04/14/20 11:25: POC Whole Blood Glucose 160H Height (Feet): 5 Height (Inches): 7.00 Weight (Pounds): 158 General Appearance: no apparent distress Objective No change Toan Carey MD Apr 14, 2020 13:10
[2020-04-14 16:00] VITALS: BP 122/72
[2020-04-14 20:00] VITALS: BP 139/79
[2020-04-14] MEDS: Milk of Magnesia 30ml Ud ORAL SCH (20:15)
[2020-04-14] MEDS: Levemir Flexpen SUBQ SCH (20:30)
[2020-04-15] VITALS: BP 120/89
[2020-04-15] MEDS: D5NS 1,000 ML IV SCH (03:17)
[2020-04-15 04:00] VITALS: BP 131/80
[2020-04-15] MEDS: NovoLOG Insulin Flexpen SUBQ SCH ×5 (05:52→21:40)
[2020-04-15 06:26] LABS: BASOPHILS % (AUTO) 0.9 % (0.0-2.0); HEMATOCRIT 39.1 % (42.0-52.0); HEMOGLOBIN 13.7 G/DL (14.2-18.0); LYMPHOCYTES % (AUTO) 19.2 % (20.0-45.0); MEAN CORPUSCULAR VOLUME 86 FL (80-99); MONOCYTES % (AUTO) 8.8 % (1.0-10.0); NEUTROPHILS % (AUTO) 68.1 % (45.0-75.0); PLATELET COUNT 168 K/UL (150-450); RED BLOOD COUNT 4.54 M/UL (4.70-6.10); RED CELL DISTRIBUTION WIDTH 12.3 % (11.6-14.8); WHITE BLOOD COUNT 8.5 K/UL (4.8-10.8)
[2020-04-15 06:35] LABS: ANION GAP 9 mmol/L (5-15); BLOOD UREA NITROGEN 6 mg/dL (7-18); CALCIUM 9.1 MG/DL (8.5-10.1); CARBON DIOXIDE 27 MMOL/L (21-32); CHLORIDE 104 MMOL/L (98-107); CREATININE 0.8 MG/DL (0.55-1.30); POTASSIUM 4.1 MMOL/L (3.5-5.1); SODIUM 140 MMOL/L (136-145)
--- NOTE | 2020-04-15 06:35 | General Progress Note ---
Subjective ROS Limited/Unobtainable: Yes Allergies: Coded Allergies: No Known Allergies (Unverified , 03/03/16) Subjective events noted interval notes reviewed glucose values improved Item Value Date Time Bedside Blood Glucose 157 mg/dl H 04/15/20 0623 Bedside Blood Glucose 99 mg/dl 04/14/202030 Bedside Blood Glucose 178 mg/dl H 04/14/20 1645 Bedside Blood Glucose 160 mg/dl H 04/14/20 1217 Bedside Blood Glucose 162 mg/dl H 04/14/20 0629 Objective Last 24 Hour Vital Signs Date Time Temp Pulse Resp B/P (MAP) Pulse Ox O2 Delivery O2 Flow Rate FiO2 04/15/20 04:00 97.5 77 18 131/80 (97) 96 04/15/20 00:00 97.5 95 22 120/89 (99) 100 04/14/20 21:00 Room Air 04/14/20 20:00 96.8 74 16 139/79 (99) 97 04/14/20 16:00 97.5 83 17 122/72 (89) 98 04/14/20 12:00 97.5 74 18 128/73 (91) 93 04/14/20 09:00 Room Air 04/14/20 08:33 81 118/71 04/14/20 08:00 98.6 81 18 118/71 (87) 97 Intake and Output 04/14/20 04/15/20 19:00 07:00 Intake Total 2660 ml 1500 ml Output Total 1800 ml 6 ml Balance 860 ml 1494 ml Intake Oral 2000 ml 1500 ml IV Total 660 ml 0 ml Output Urine Total 1800 ml 6 ml # Bowel Movements 1 Laboratory Tests 04/14/20 10:11: Sodium Level 141, Potassium Level 3.8, Chloride Level 107, Carbon Dioxide Level 29, Anion Gap 5, Blood Urea Nitrogen 6L, Creatinine 0.7, Estimat Glomerular Filtration Rate > 60, Glucose Level 108H, Calcium Level 8.4L 04/14/20 10:15: White Blood Count 8.3, Red Blood Count 4.53L, Hemoglobin 13.5L, Hematocrit 39.3L , Mean Corpuscular Volume 87, Mean Corpuscular Hemoglobin 29.8, Mean Corpuscular Hemoglobin Concent 34.3, Red Cell Distribution Width 12.7, Platelet Count 180, Mean Platelet Volume 10.8H, Neutrophils (%) (Auto) 63.2, Lymphocytes (%) (Auto) 23.7, Monocytes (%) (Auto) 9.1, Eosinophils (%) (Auto) 3.0, Basophils (%) (Auto) 1.0 04/14/20 11:25: POC Whole Blood Glucose 160H 04/14/20 16:38: POC Whole Blood Glucose 178H 04/15/20 05:45: White Blood Count [Pending], Red Blood Count [Pending], Hemoglobin [Pending], Hematocrit [Pending], Mean Corpuscular Volume [Pending], Mean Corpuscular Hemoglobin [Pending], Mean Corpuscular Hemoglobin Concent [Pending], Red Cell Distribution Width [Pending], Platelet Count [Pending], Mean Platelet Volume [Pending], Neutrophils (%) (Auto) [Pending], Lymphocytes (%) (Auto) [Pending], Monocytes (%) (Auto) [Pending], Eosinophils (%) (Auto) [Pending], Basophils (%) (Auto) [Pending], Sodium Level [Pending], Potassium Level [Pending], Chloride Level [Pending], Carbon Dioxide Level [Pending], Blood Urea Nitrogen [Pending], Creatinine [Pending], Estimat Glomerular Filtration Rate [Pending], Glucose Level [Pending], Calcium Level [Pending] Height (Feet): 5 Height (Inches): 7.00 Weight (Pounds): 158 General Appearance: no apparent distress Neck: normal alignment Cardiovascular: normal rate Respiratory/Chest: lungs clear Abdomen: normal bowel sounds Objective Current Medications Medications (Trade) Dose Ordered Sig/Nimisha Route PRN Reason Start Time Stop Time Status Last Admin Dose Admin Acetaminophen (Tylenol) 650 mg Q4H PRN ORAL Temp >100.5 04/12/20 22:45 05/12/20 22:44 Acetaminophen (Tylenol) 650 mg Q6H PRN ORAL For Pain 04/12/20 22:45 05/12/20 22:44 Al Hydroxide/Mg Hydroxide (Mylanta) 5 ml QIDPRN ORAL 04/12/20 22:45 05/12/20 22:44 Amlodipine Besylate (Norvasc) 5 mg DAILY ORAL 04/13/20 09:00 05/13/20 08:59 04/14/20 08:33 Ascorbic Acid (Vitamin C) 500 mg DAILY ORAL 04/13/20 09:00 05/13/20 08:59 04/14/20 08:32 Aspirin (ASA) 81 mg DAILY ORAL 04/13/20 09:00 05/28/20 08:59 04/14/20 08:32 Bisacodyl (Dulcolax) 10 mg DAILYPRN PRN RECTAL Constipation 04/13/20 12:30 07/12/20 12:29 Clozapine (Clozaril) 400 mg BEDTIME ORAL 04/13/20 21:00 04/20/20 20:59 04/14/20 20:30 Dextrose (Dextrose 50%) 25 ml Q30M PRN IV Hypoglycemia 04/12/20 22:45 07/11/20 22:44 Dextrose (Dextrose 50%) 50 ml Q30M PRN IV Hypoglycemia 04/12/20 22:45 07/11/20 22:44 Dextrose/Sodium Chloride 1,000 ml @ 60 mls/hr [id number] IV 04/13/20 01:30 05/13/20 01:29 04/15/20 03:17 Divalproex Sodium (Depakote) 250 mg BEDTIME ORAL 04/13/20 21:00 05/13/20 20:59 04/14/20 20:30 Docusate Sodium (Colace) 100 mg TWICE A DAY ORAL 04/13/20 09:00 05/13/20 08:59 04/14/20 16:58 Heparin Sodium (Porcine) (Heparin 5000 units/ml) 5,000 units EVERY 12 HOURS SUBQ 04/13/20 21:00 05/28/20 20:59 04/14/20 20:36 Insulin Aspart (NovoLOG) BEFORE MEALS AND HS SUBQ 04/13/20 06:30 07/12/20 06:29 04/15/20 05:52 Insulin Detemir (Levemir) 30 units QHS SUBQ 04/13/20 21:00 07/12/20 20:59 04/13/20 20:22 Magnesium Hydroxide (Mom) 30 ml QHS ORAL 04/13/20 21:00 05/13/20 20:59 Metformin HCl (Glucophage) 850 mg BID ORAL 04/13/20 18:00 05/13/20 08:59 04/14/20 16:58 Nateglinide (Starlix) 120 mg THREE TIMES A DAY ORAL 04/13/20 09:00 05/13/20 08:59 04/14/20 16:58 Pioglitazone HCl (Actos) 15 mg DAILY ORAL 04/13/20 14:16 05/13/20 14:15 04/14/20 08:32 Thiamine HCl (Vitamin B1) 100 mg DAILY ORAL 04/13/20 09:00 05/13/20 08:59 04/14/20 08:32 Assessment/Plan Problem List: (1) Schizophrenia ICD Codes: F20.9 - Schizophrenia, unspecified SNOMED: 16591457 Qualifiers: Qualified Codes: F20.89 - Other schizophrenia (2) History of diabetes mellitus ICD Codes: Z86.39 - Personal history of other endocrine, nutritional and metabolic disease SNOMED: 017976328 (3) Hypernatremia ICD Codes: E87.0 - Hyperosmolality and hypernatremia SNOMED: 070462291 (4) Vomiting ICD Codes: R11.10 - Vomiting, unspecified SNOMED: 544925084 Status: unchanged Assessment/Plan: continue Levemir 30 units qhs continue Metformin 850 mg bid continue Actos 15 mg daily continue Starlix 120 mg ac tid continue Novolog sliding scale ac / hs Izaiah Castro MD Apr 15, 2020 06:35
[2020-04-15 08:00] VITALS: BP 118/63
[2020-04-15] MEDS: Aspirin Baby 81mg ORAL SCH (08:07)
[2020-04-15] MEDS: Ascorbic Acid 500mg tab ORAL SCH (08:08)
[2020-04-15] MEDS: Thiamine 100mg tab ORAL SCH (08:08)
[2020-04-15] MEDS: Docusate 100mg cap ORAL SCH ×2 (08:08→16:56)
[2020-04-15] MEDS: Heparin 5000 units/ml inj SUBQ SCH ×2 (08:14→21:40)
--- NOTE | 2020-04-15 09:53 | General Progress Note ---
Subjective Allergies: Coded Allergies: No Known Allergies (Unverified , 03/03/16) All Systems: reviewed and negative except above Subjective calm in bed Objective Last 24 Hour Vital Signs Date Time Temp Pulse Resp B/P (MAP) Pulse Ox O2 Delivery O2 Flow Rate FiO2 04/15/20 08:08 110 118/63 04/15/20 08:00 97.7 110 18 118/63 (81) 100 04/15/20 04:00 97.5 77 18 131/80 (97) 96 04/15/20 00:00 97.5 95 22 120/89 (99) 100 04/14/20 21:00 Room Air 04/14/20 20:00 96.8 74 16 139/79 (99) 97 04/14/20 16:00 97.5 83 17 122/72 (89) 98 04/14/20 12:00 97.5 74 18 128/73 (91) 93 Intake and Output 04/14/20 04/15/20 19:00 07:00 Intake Total 2660 ml 1500 ml Output Total 1800 ml 6 ml Balance 860 ml 1494 ml Intake Oral 2000 ml 1500 ml IV Total 660 ml 0 ml Output Urine Total 1800 ml 6 ml # Bowel Movements 1 Laboratory Tests 04/14/20 10:11: Sodium Level 141, Potassium Level 3.8, Chloride Level 107, Carbon Dioxide Level 29, Anion Gap 5, Blood Urea Nitrogen 6L, Creatinine 0.7, Estimat Glomerular Filtration Rate > 60, Glucose Level 108H, Calcium Level 8.4L 04/14/20 10:15: White Blood Count 8.3, Red Blood Count 4.53L, Hemoglobin 13.5L, Hematocrit 39.3L , Mean Corpuscular Volume 87, Mean Corpuscular Hemoglobin 29.8, Mean Corpuscular Hemoglobin Concent 34.3, Red Cell Distribution Width 12.7, Platelet Count 180, Mean Platelet Volume 10.8H, Neutrophils (%) (Auto) 63.2, Lymphocytes (%) (Auto) 23.7, Monocytes (%) (Auto) 9.1, Eosinophils (%) (Auto) 3.0, Basophils (%) (Auto) 1.0 04/14/20 11:25: POC Whole Blood Glucose 160H 04/14/20 16:38: POC Whole Blood Glucose 178H 04/15/20 05:45: White Blood Count 8.5, Red Blood Count 4.54L, Hemoglobin 13.7L, Hematocrit 39.1L , Mean Corpuscular Volume 86, Mean Corpuscular Hemoglobin 30.3, Mean Corpuscular Hemoglobin Concent 35.1, Red Cell Distribution Width 12.3, Platelet Count 168, Mean Platelet Volume 12.1H, Neutrophils (%) (Auto) 68.1, Lymphocytes (%) (Auto) 19.2L, Monocytes (%) (Auto) 8.8, Eosinophils (%) (Auto) 3.0, Basophils (%) (Auto) 0.9, Sodium Level 140, Potassium Level 4.1, Chloride Level 104, Carbon Dioxide Level 27, Anion Gap 9, Blood Urea Nitrogen 6L, Creatinine 0.8, Estimat Glomerular Filtration Rate > 60, Glucose Level 154H, Calcium Level 9.1 Height (Feet): 5 Height (Inches): 7.00 Weight (Pounds): 158 General Appearance: lethargic EENT: normal ENT inspection Neck: normal alignment Cardiovascular: normal peripheral pulses, normal rate, regular rhythm Respiratory/Chest: chest wall non-tender, lungs clear, normal breath sounds Abdomen: normal bowel sounds, non tender, soft Extremities: normal inspection Neurologic: motor weakness Skin: normal pigmentation, cyanotic Assessment/Plan Problem List: (1) Vomiting ICD Codes: R11.10 - Vomiting, unspecified SNOMED: 794757750 (2) Schizophrenia ICD Codes: F20.9 - Schizophrenia, unspecified SNOMED: 21226950 Qualifiers: Qualified Codes: F20.89 - Other schizophrenia (3) History of diabetes mellitus ICD Codes: Z86.39 - Personal history of other endocrine, nutritional and metabolic disease SNOMED: 168092989 (4) Hypernatremia ICD Codes: E87.0 - Hyperosmolality and hypernatremia SNOMED: 430036652 Status: unchanged Assessment/Plan: bp bs control neph endo f/u cbc bmp am psyc transfer LakhaniJames Farrah DO Apr 15, 2020 09:53
--- NOTE | 2020-04-15 10:17 | Nephrology Progress Note ---
Assessment/Plan Problem List: (1) Hypernatremia (2) Vomiting (3) History of diabetes mellitus (4) Schizophrenia Assessment Hypernatremia now improved Hyperglycemia stable History of hypertension History of diabetes mellitus COPD Paranoid schizophrenia Mild anemia Plan April 15: Clinically stable. Continue per PMD and consultants. Previously: Continue per current management Continue to monitor electrolytes and renal parameters Psych eval Subjective ROS Limited/Unobtainable: No Constitutional: Reports: malaise Objective Objective Last 24 Hour Vital Signs Date Time Temp Pulse Resp B/P (MAP) Pulse Ox O2 Delivery O2 Flow Rate FiO2 04/15/20 08:08 110 118/63 04/15/20 08:00 97.7 110 18 118/63 (81) 100 04/15/20 04:00 97.5 77 18 131/80 (97) 96 04/15/20 00:00 97.5 95 22 120/89 (99) 100 04/14/20 21:00 Room Air 04/14/20 20:00 96.8 74 16 139/79 (99) 97 04/14/20 16:00 97.5 83 17 122/72 (89) 98 04/14/20 12:00 97.5 74 18 128/73 (91) 93 Intake and Output 04/14/20 04/15/20 19:00 07:00 Intake Total 2660 ml 1500 ml Output Total 1800 ml 6 ml Balance 860 ml 1494 ml Intake Oral 2000 ml 1500 ml IV Total 660 ml 0 ml Output Urine Total 1800 ml 6 ml # Bowel Movements 1 Laboratory Tests 04/14/20 11:25: POC Whole Blood Glucose 160H 04/14/20 16:38: POC Whole Blood Glucose 178H 04/15/20 05:45: White Blood Count 8.5, Red Blood Count 4.54L, Hemoglobin 13.7L, Hematocrit 39.1L , Mean Corpuscular Volume 86, Mean Corpuscular Hemoglobin 30.3, Mean Corpuscular Hemoglobin Concent 35.1, Red Cell Distribution Width 12.3, Platelet Count 168, Mean Platelet Volume 12.1H, Neutrophils (%) (Auto) 68.1, Lymphocytes (%) (Auto) 19.2L, Monocytes (%) (Auto) 8.8, Eosinophils (%) (Auto) 3.0, Basophils (%) (Auto) 0.9, Sodium Level 140, Potassium Level 4.1, Chloride Level 104, Carbon Dioxide Level 27, Anion Gap 9, Blood Urea Nitrogen 6L, Creatinine 0.8, Estimat Glomerular Filtration Rate > 60, Glucose Level 154H, Calcium Level 9.1 Height (Feet): 5 Height (Inches): 7.00 Weight (Pounds): 158 General Appearance: no apparent distress Objective No change Toan Carey MD Apr 15, 2020 10:17
--- NOTE | 2020-04-15 10:23 | Initial Psychiatric Evaluation ---
Psychiatry Consultation Psychiatry Consultation Chief Complaint: Abnormal Labs History of Present Illness: 70 yo male who continues to be confused and disorganized. Patient continues to endorse auditory hallucinations and is very disorganized with poor insight. Patient has difficulty barron for his saftey. Has a decline in cognition below his baseling which is why his attending has requested daily psych consult. Allergies: Coded Allergies: No Known Allergies (Unverified , 03/03/16) Medication History Scheduled Amlodipine Besylate* (Amlodipine Besylate*), 5 MG ORAL DAILY, (Reported) Ascorbic Acid* (Vitamin C*), 500 MG ORAL DAILY, (Reported) Aspirin* (Aspirin*), 81 MG ORAL DAILY, (Reported) Clonidine Hcl* (Catapres*), 0.1 MG ORAL Q8H, (Reported) Clozapine (Clozapine), 400 MG PO BEDTIME, (Reported) Divalproex Sodium* (Depakote*), 250 MG PO BEDTIME, (Reported) Insulin Detemir (Levemir Flextouch), 30 UNIT SQ QHS, (Reported) Magnesium Hydroxide (Milk of Magnesia), 30 ML ORAL QHS, (Reported) Metformin Hcl* (Metformin Hcl*), 850 MG ORAL DAILY, (Reported) Nateglinide (Nateglinide), 120 MG PO THREE TIMES A DAY, (Reported) Thiamine Hcl (Thiamine Hcl), 100 MG IJ DAILY, (Reported) [mylanta], 5 ML PO Q4HR, (Reported) Scheduled PRN Acetaminophen* (Acetaminophen 325MG Tablet*), 650 MG ORAL Q4H PRN for Temp >100.5, (Reported) Acetaminophen* (Acetaminophen 325MG Tablet*), 650 MG ORAL Q6H PRN for For Pain, (Reported) Linagliptin (Tradjenta), 5 MG PO DAILY PRN for Hyperglycemia, (Reported) Pioglitazone Hcl* (Actos*), 15 MG ORAL DAILY PRN for Hyperglycemia, (Reported) Miscellaneous Medications Bisacodyl (Bisacodyl), 10 MG RC, (Reported) Objective Data Height (Feet): 5 Height (Inches): 7.00 Weight (Pounds): 158 Appearance: disheveled Behavior Mannerisms: poor eye contact Affect: expansive Mood: depressed Speech: dysarthric Thought Process: disorganized Thought Content: paranoia Perceptual Disturbances: hallucinations, auditory Suicidal Ideation: present Assessment/Plan Assessment/Plan: 20 min of CBT therapy to help her identify her automatic thoughts of negative things and help convet them to positive thinking to reduce depression and SI. Continue Clozaril 400mg PO qhs and Depakote 500mg PO BID. Diagnosis Iaeger I: Schizoaffective Bipolar type Matilde Rodriguez MD Apr 15, 2020 10:23
[2020-04-15 11:33] VITALS: BP 117/57
[2020-04-15 16:02] VITALS: BP 120/70
[2020-04-15 20:00] VITALS: BP 103/60
[2020-04-15] MEDS: Levemir Flexpen SUBQ SCH (21:00)
[2020-04-15] MEDS: Milk of Magnesia 30ml Ud ORAL SCH (21:40)
[2020-04-16] VITALS: BP 105/65
[2020-04-16 04:00] VITALS: BP 116/73
--- NOTE | 2020-04-16 05:57 | General Progress Note ---
Subjective ROS Limited/Unobtainable: Yes Allergies: Coded Allergies: No Known Allergies (Unverified , 03/03/16) Subjective events noted interval notes reviewed glucose values stable without Levemir x 2 consecutive nights Item Value Date Time Bedside Blood Glucose 97 mg/dl 04/15/20 2100 Bedside Blood Glucose 173 mg/dl H 04/15/20 1653 Bedside Blood Glucose 106 mg/dl 04/15/20 1131 Bedside Blood Glucose 157 mg/dl H 04/15/20 0623 Bedside Blood Glucose 99 mg/dl 04/14/20 2031 Objective Last 24 Hour Vital Signs Date Time Temp Pulse Resp B/P (MAP) Pulse Ox O2 Delivery O2 Flow Rate FiO2 04/16/20 00:00 98.1 95 16 105/65 (78) 96 04/15/20 21:00 Room Air 04/15/20 20:00 97.7 90 17 103/60 (74) 96 04/15/20 16:02 98.1 110 18 120/70 (87) 100 04/15/20 11:33 97.9 85 20 117/57 (77) 97 04/15/20 09:00 Room Air 04/15/20 08:08 110 118/63 04/15/20 08:00 97.7 110 18 118/63 (81) 100 Intake and Output 04/15/20 04/16/20 19:00 07:00 Intake Total 1500 ml Output Total 5 ml Balance 1495 ml Intake Oral 1500 ml Output Urine Total 5 ml # Voids 1 # Bowel Movements 2 Height (Feet): 5 Height (Inches): 7.00 Weight (Pounds): 158 General Appearance: no apparent distress Neck: normal alignment Cardiovascular: normal rate Respiratory/Chest: lungs clear Abdomen: normal bowel sounds Pelvis: normal external exam Objective Current Medications Medications (Trade) Dose Ordered Sig/Nimisha Route PRN Reason Start Time Stop Time Status Last Admin Dose Admin Acetaminophen (Tylenol) 650 mg Q4H PRN ORAL Temp >100.5 04/12/20 22:45 05/12/20 22:44 Acetaminophen (Tylenol) 650 mg Q6H PRN ORAL For Pain 04/12/20 22:45 05/12/20 22:44 Al Hydroxide/Mg Hydroxide (Mylanta) 5 ml QIDPRN ORAL 04/12/20 22:45 11/15/20 22:44 Amlodipine Besylate (Norvasc) 5 mg DAILY ORAL 04/13/20 09:00 05/13/20 08:59 04/15/20 08:08 Ascorbic Acid (Vitamin C) 500 mg DAILY ORAL 04/13/20 09:00 05/13/20 08:59 04/15/20 08:08 Aspirin (ASA) 81 mg DAILY ORAL 04/13/20 09:00 05/28/20 08:59 04/15/20 08:07 Bisacodyl (Dulcolax) 10 mg DAILYPRN PRN RECTAL Constipation 04/13/20 12:30 07/12/20 12:29 Clozapine (Clozaril) 400 mg BEDTIME ORAL 04/13/20 21:00 04/20/20 20:59 04/15/20 21:40 Dextrose (Dextrose 50%) 25 ml Q30M PRN IV Hypoglycemia 04/12/20 22:45 07/11/20 22:44 Dextrose (Dextrose 50%) 50 ml Q30M PRN IV Hypoglycemia 04/12/20 22:45 07/11/20 22:44 Divalproex Sodium (Depakote) 250 mg BEDTIME ORAL 04/13/20 21:00 05/13/20 20:59 04/15/20 21:40 Docusate Sodium (Colace) 100 mg TWICE A DAY ORAL 04/13/20 09:00 05/13/20 08:59 04/15/20 16:56 Heparin Sodium (Porcine) (Heparin 5000 units/ml) 5,000 units EVERY 12 HOURS SUBQ 04/13/20 21:00 05/28/20 20:59 04/15/20 21:40 Insulin Aspart (NovoLOG) BEFORE MEALS AND HS SUBQ 04/13/20 06:30 07/12/20 06:29 04/15/20 16:53 Insulin Detemir (Levemir) 30 units QHS SUBQ 04/13/20 21:00 07/12/20 20:59 04/13/20 20:22 Magnesium Hydroxide (Mom) 30 ml QHS ORAL 04/13/20 21:00 05/13/20 20:59 04/15/20 21:40 Metformin HCl (Glucophage) 850 mg BID ORAL 04/13/20 18:00 05/13/20 08:59 10/19/20 16:57 Nateglinide (Starlix) 120 mg THREE TIMES A DAY ORAL 04/13/20 09:00 05/13/20 08:59 04/15/20 16:56 Pioglitazone HCl (Actos) 15 mg DAILY ORAL 04/13/20 14:16 05/13/20 14:15 04/15/20 08:07 Thiamine HCl (Vitamin B1) 100 mg DAILY ORAL 04/13/20 09:00 05/13/20 08:59 04/15/20 08:08 Assessment/Plan Problem List: (1) Schizophrenia ICD Codes: F20.9 - Schizophrenia, unspecified SNOMED: 69482686 Qualifiers: Qualified Codes: F20.89 - Other schizophrenia (2) History of diabetes mellitus ICD Codes: Z86.39 - Personal history of other endocrine, nutritional and metabolic disease SNOMED: 098928507 (3) Hypernatremia ICD Codes: E87.0 - Hyperosmolality and hypernatremia SNOMED: 851340403 (4) Vomiting ICD Codes: R11.10 - Vomiting, unspecified SNOMED: 366052658 Status: unchanged Assessment/Plan: DC Levemir 30 units qhs continue Metformin 850 mg bid continue Actos 15 mg daily continue Starlix 120 mg ac tid continue Novolog sliding scale ac / hs Izaiah Castro MD Apr 16, 2020 05:56
[2020-04-16 06:31] LABS: BASOPHILS % (AUTO) 2.1 % (0.0-2.0); EOSINOPHILS % (AUTO) 3.7 % (0.0-3.0); HEMATOCRIT 38.9 % (42.0-52.0); HEMOGLOBIN 13.4 G/DL (14.2-18.0); LYMPHOCYTES % (AUTO) 26.2 % (20.0-45.0); MEAN CORPUSCULAR VOLUME 86 FL (80-99); MONOCYTES % (AUTO) 10.6 % (1.0-10.0); NEUTROPHILS % (AUTO) 57.3 % (45.0-75.0); PLATELET COUNT 168 K/UL (150-450); RED BLOOD COUNT 4.52 M/UL (4.70-6.10); RED CELL DISTRIBUTION WIDTH 12.3 % (11.6-14.8); WHITE BLOOD COUNT 6.8 K/UL (4.8-10.8)
[2020-04-16] MEDS: NovoLOG Insulin Flexpen SUBQ SCH ×3 (06:53→16:30)
[2020-04-16 07:02] LABS: ANION GAP 5 mmol/L (5-15); BLOOD UREA NITROGEN 9 mg/dL (7-18); CALCIUM 8.6 MG/DL (8.5-10.1); CARBON DIOXIDE 28 MMOL/L (21-32); CHLORIDE 106 MMOL/L (98-107); CREATININE 0.7 MG/DL (0.55-1.30); POTASSIUM 3.9 MMOL/L (3.5-5.1); SODIUM 139 MMOL/L (136-145)
[2020-04-16 08:00] VITALS: BP 111/68
[2020-04-16] MEDS: Ascorbic Acid 500mg tab ORAL SCH (10:05)
[2020-04-16] MEDS: Docusate 100mg cap ORAL SCH (10:05)
[2020-04-16] MEDS: Aspirin Baby 81mg ORAL SCH (10:05)
[2020-04-16] MEDS: Thiamine 100mg tab ORAL SCH (10:06)
--- NOTE | 2020-04-16 10:11 | Nephrology Progress Note ---
Assessment/Plan Problem List: (1) Hypernatremia (2) Vomiting (3) History of diabetes mellitus (4) Schizophrenia Assessment Hypernatremia now improved Hyperglycemia stable History of hypertension History of diabetes mellitus COPD Paranoid schizophrenia Mild anemia Plan April 16: Labs reviewed. Renal parameters are stable. April 15: Clinically stable. Continue per PMD and consultants. Previously: Continue per current management Continue to monitor electrolytes and renal parameters Psych eval Subjective ROS Limited/Unobtainable: No Objective Objective Last 24 Hour Vital Signs Date Time Temp Pulse Resp B/P (MAP) Pulse Ox O2 Delivery O2 Flow Rate FiO2 04/16/20 09:00 100 105/62 04/16/20 08:00 97.7 87 18 111/68 (82) 95 04/16/20 04:00 97.7 75 17 116/73 (87) 96 04/16/20 00:00 98.1 95 16 105/65 (78) 96 04/15/20 21:00 Room Air 04/15/20 20:00 97.7 90 17 103/60 (74) 96 04/15/20 16:02 98.1 110 18 120/70 (87) 100 04/15/20 11:33 97.9 85 20 117/57 (77) 97 Intake and Output 04/15/20 04/16/20 19:00 07:00 Intake Total 1500 ml 400 ml Output Total 5 ml Balance 1495 ml 400 ml Intake Oral 1500 ml 400 ml Output Urine Total 5 ml # Voids 1 2 # Bowel Movements 2 Laboratory Tests 04/16/20 06:10: White Blood Count 6.8, Red Blood Count 4.52L, Hemoglobin 13.4L, Hematocrit 38.9L , Mean Corpuscular Volume 86, Mean Corpuscular Hemoglobin 29.6, Mean Corpuscular Hemoglobin Concent 34.4, Red Cell Distribution Width 12.3, Platelet Count 168, Mean Platelet Volume 12.7H, Neutrophils (%) (Auto) 57.3, Lymphocytes (%) (Auto) 26.2, Monocytes (%) (Auto) 10.6H, Eosinophils (%) (Auto) 3.7H, Basophils (%) (Auto) 2.1H, Sodium Level 139, Potassium Level 3.9, Chloride Level 106, Carbon Dioxide Level 28, Anion Gap 5, Blood Urea Nitrogen 9, Creatinine 0.7, Estimat Glomerular Filtration Rate > 60, Glucose Level 154H, Calcium Level 8.6 Height (Feet): 5 Height (Inches): 7.00 Weight (Pounds): 158 General Appearance: no apparent distress Objective No change Toan Carey MD Apr 16, 2020 10:11
[2020-04-16] MEDS: Heparin 5000 units/ml inj SUBQ SCH (10:12)
[2020-04-16 12:00] VITALS: BP_SYST 111; BP_SYST 142; BP_DIAS 68; BP_DIAS 74
--- NOTE | 2020-04-16 12:01 | Initial Psychiatric Evaluation ---
Psychiatry Consultation Psychiatry Consultation Referring physician: 70 yo male who continues to be confused and disorganized Chief Complaint: Abnormal Labs History of Present Illness: 70 yo male who conitnues to have confusion and mood lability and a decline in cognition below his baseline. He is still a poor historian. Allergies: Coded Allergies: No Known Allergies (Unverified , 03/03/16) Medication History Scheduled Amlodipine Besylate* (Amlodipine Besylate*), 5 MG ORAL DAILY, (Reported) Ascorbic Acid* (Vitamin C*), 500 MG ORAL DAILY, (Reported) Aspirin* (Aspirin*), 81 MG ORAL DAILY, (Reported) Clonidine Hcl* (Catapres*), 0.1 MG ORAL Q8H, (Reported) Clozapine (Clozapine), 400 MG PO BEDTIME, (Reported) Divalproex Sodium* (Depakote*), 250 MG PO BEDTIME, (Reported) Insulin Detemir (Levemir Flextouch), 30 UNIT SQ QHS, (Reported) Magnesium Hydroxide (Milk of Magnesia), 30 ML ORAL QHS, (Reported) Metformin Hcl* (Metformin Hcl*), 850 MG ORAL DAILY, (Reported) Nateglinide (Nateglinide), 120 MG PO THREE TIMES A DAY, (Reported) Thiamine Hcl (Thiamine Hcl), 100 MG IJ DAILY, (Reported) [mylanta], 5 ML PO Q4HR, (Reported) Scheduled PRN Acetaminophen* (Acetaminophen 325MG Tablet*), 650 MG ORAL Q4H PRN for Temp >100.5, (Reported) Acetaminophen* (Acetaminophen 325MG Tablet*), 650 MG ORAL Q6H PRN for For Pain, (Reported) Linagliptin (Tradjenta), 5 MG PO DAILY PRN for Hyperglycemia, (Reported) Pioglitazone Hcl* (Actos*), 15 MG ORAL DAILY PRN for Hyperglycemia, (Reported) Miscellaneous Medications Bisacodyl (Bisacodyl), 10 MG RC, (Reported) Objective Data Height (Feet): 5 Height (Inches): 7.00 Weight (Pounds): 158 Appearance: disheveled Behavior Mannerisms: poor eye contact Affect: constricted Mood: depressed Speech: dysarthric Thought Process: goal-directed Thought Content: delusions of grandiosity Perceptual Disturbances: auditory Suicidal Ideation: no plan Assessment/Plan Assessment/Plan: 20 min of CBT therapy to help her identify her automatic thoughts of negative things and help convet them to positive thinking to reduce depression and SI. Continue Clozaril 400mg PO qhs and Depakote 500mg PO BID. Diagnosis Hume I: Schizo affective Bipolar type. Matilde Rodriguez MD Apr 16, 2020 12:01
--- NOTE | 2020-04-16 13:19 | General Progress Note ---
Subjective Constitutional: Reports: weakness Allergies: Coded Allergies: No Known Allergies (Unverified , 03/03/16) All Systems: reviewed and negative except above Subjective calm in bed Objective Last 24 Hour Vital Signs Date Time Temp Pulse Resp B/P (MAP) Pulse Ox O2 Delivery O2 Flow Rate FiO2 04/16/20 12:00 96.8 80 18 142/74 (96) 04/16/20 12:00 97.7 87 18 111/68 (82) 95 04/16/20 10:23 Room Air 04/16/20 09:00 100 105/62 04/16/20 08:00 97.7 87 18 111/68 (82) 95 04/16/20 04:00 97.7 75 17 116/73 (87) 96 04/16/20 00:00 98.1 95 16 105/65 (78) 96 04/15/20 21:00 Room Air 04/15/20 20:00 97.7 90 17 103/60 (74) 96 04/15/20 16:02 98.1 110 18 120/70 (87) 100 Intake and Output 04/15/20 04/16/20 19:00 07:00 Intake Total 1500 ml 400 ml Output Total 5 ml Balance 1495 ml 400 ml Intake Oral 1500 ml 400 ml Output Urine Total 5 ml # Voids 1 2 # Bowel Movements 2 Laboratory Tests 04/16/20 06:10: White Blood Count 6.8, Red Blood Count 4.52L, Hemoglobin 13.4L, Hematocrit 38.9L , Mean Corpuscular Volume 86, Mean Corpuscular Hemoglobin 29.6, Mean Corpuscular Hemoglobin Concent 34.4, Red Cell Distribution Width 12.3, Platelet Count 168, Mean Platelet Volume 12.7H, Neutrophils (%) (Auto) 57.3, Lymphocytes (%) (Auto) 26.2, Monocytes (%) (Auto) 10.6H, Eosinophils (%) (Auto) 3.7H, Basophils (%) (Auto) 2.1H, Sodium Level 139, Potassium Level 3.9, Chloride Level 106, Carbon Dioxide Level 28, Anion Gap 5, Blood Urea Nitrogen 9, Creatinine 0.7, Estimat Glomerular Filtration Rate > 60, Glucose Level 154H, Calcium Level 8.6 Height (Feet): 5 Height (Inches): 7.00 Weight (Pounds): 158 General Appearance: lethargic EENT: normal ENT inspection Neck: normal alignment Cardiovascular: normal peripheral pulses, normal rate, regular rhythm Respiratory/Chest: chest wall non-tender, lungs clear, normal breath sounds Abdomen: normal bowel sounds, non tender, soft Extremities: normal inspection Edema: no edema noted Arm (L), no edema noted Arm (R), no edema noted Leg (L), no edema noted Leg (R), no edema noted Pedal (L), no edema noted Pedal (R), no edema noted Generalized Neurologic: motor weakness Skin: normal pigmentation, warm/dry Assessment/Plan Problem List: (1) Vomiting ICD Codes: R11.10 - Vomiting, unspecified SNOMED: 661251621 (2) Schizophrenia ICD Codes: F20.9 - Schizophrenia, unspecified SNOMED: 98344611 Qualifiers: Qualified Codes: F20.89 - Other schizophrenia (3) History of diabetes mellitus ICD Codes: Z86.39 - Personal history of other endocrine, nutritional and metabolic disease SNOMED: 815683757 (4) Hypernatremia ICD Codes: E87.0 - Hyperosmolality and hypernatremia SNOMED: 768952852 Status: stable, progressing Assessment/Plan: bp bs control neph endo f/u dc to snf James Lakhani DO Apr 16, 2020 13:19
[2020-04-16 16:00] VITALS: BP 120/72
--- NOTE | 2020-04-18 09:00 | Discharge Summary ---
Discharge Summary Discharge Summary _ DATE OF ADMISSION: 04/13/2020 DATE OF DISCHARGE: 04/16/2020 DISCHARGED BY: Dr. Lakhani REASON FOR ADMISSION: 70 years old male, with past medical history of diabetes mellitus, hypertension, schizophrenia, resident [facility], presented for high blood sugar. Patient was unable to provide much of the information given his psychiatric history. Upon evaluation vital signs were stable. Laboratory work-up revealed mild leukocytosis, hemoglobin 13.4, hematocrit 40.9. Sodium 151, chloride 111. Stable renal parameters. Stable LFT. Troponin negative. EKG revealed sinus rhythm, no acute ischemic changes TSH within normal limits. . Chest x-ray revealed no acute cardiopulmonary pathology. Urinalysis revealed no evidence of UTI. Urine toxicology screen was negative . Patient allegedly tested positive for COVID-19 in September. Rapid COVID-19 in emergency department was negative. Patient subsequently admitted for hypernatremia , schizophrenia and diabetes. CONSULTANTS: dobie man Dr. Carey aviation technician Dr. Castro psychiatrist Dr. Rodriguez HOSPITAL COURSE: Patient admitted and started on the IV hydration. Storage Battery Inspector And Tester closely followed. Renal parameters and electrolytes were closely monitored, electrolytes corrected as needed, nephrotoxic's were avoided. Hypernatremia resolved ; prior to discharge sodium 139. Blood sugar was managed as per aviation technician recommendation . hemoglobin A1c 6.7 at goal. Diabetic diet provided. Patient initially was on long-acting Levemir along with oral Metformin , Actos ,and Starlix. Sliding scale of insulin was on board as needed. Blood sugar stabilized. Long-acting Levemir was discontinued . Patient to continue upon discharge oral antiglycemics: Metformin Starlix and Actos as indicated in medication reconciliation list. DVT prophylaxis provided. Blood pressure was managed with calcium channel mary , remained stable. Per psychiatrist patient had schizoaffective bipolar type. Psychiatric medication regimen was optimized. Patient provided with cognitive behavioral therapy. Patient clinically stabilized and was ready for [facility] care. FINAL DIAGNOSES: Hypernatremia-resolved Diabetes mellitus with hyperglycemia Hypertension COPD Schizoaffective bipolar type Mild anemia DISCHARGE MEDICATIONS: See Medication Reconciliation list. DISCHARGE INSTRUCTIONS: Patient was [facility] to the [facility]. Follow up with medical doctor at the facility. 70 years old male I have been assigned to dictate discharge summary for this account. I was not involved in the patient's management. Pretty Weldon NP Apr 18, 2020 09:00
== END 2020-04-16 17:21 | DRG 638 ==
LOC: EDBD 15:12 → EDUNIT# 15:12 → EDBEDREQ 18:06 → EMR 18:41 → 4E 18:46 → EDBEDREQ 20:15 → 4E 22:18 → OBSVTOIN 04-13 19:50
DX: E11.65 Type 2 diabetes mellitus with hyperglycemia (principal); E87.0 Hyperosmolality and hypernatremia; F20.0 Paranoid schizophrenia; I10 Essential (primary) hypertension; E11.9 Type 2 diabetes mellitus without complications; D64.9 Anemia, unspecified; Z79.4 Long term (current) use of insulin; E78.5 Hyperlipidemia, unspecified
CPT/HCPCS: 36415; 71045; 80048; 80053; 80307; 81003; 82550; 82962; 83036; 83605; 83935; 84300; 84443; 84484; 85025; 87081; 93005; 96361; 96365; 99285; G0480; J1815; S5561; U0002